=== PATIENT | female | born 1980 | race Caucasian/White ===

== ENCOUNTER 2016-11-19 09:29 | Emergency (ER) | payer MEDICAID ==
[~2016-11-19] VITALS: Wt 63.0 kg
[~2016-11-19 09:29] MED LIST: ALBU8.5H5 IH
[2016-11-19] MEDS ORDERED: DEXAMETHASONE 10 MG/ML 1 ML INJ IM ONE (11:30)
--- NOTE | 2016-11-19 12:05 | RADRPT ---
PROCEDURE: Chest Radiograph. CLINICAL INDICATION: Cough TECHNIQUE: Single frontal chest radiograph. COMPARISON: Chest radiograph 12/11/2008 FINDINGS: The cardiomediastinal silhouette is within normal limits. No infiltrate or effusion is seen. Th e bones are intact. IMPRESSION: 1. Unremarkable chest radiograph. RPTAT: KK .Huber Cooper MD, MD Date Time Electronically viewed and signed by .Huber Cooper MD, on 11/19/2016 12:04 .B/
[2016-11-19] MEDS ORDERED: BENZ100C70 PO (12:08)
[2016-11-19] MEDS ORDERED: ACET325T33 PO (12:08)
[2016-11-19] MEDS ORDERED: PROM25TA14 PO (12:08)
--- NOTE | 2016-11-19 12:12 | ERD ---
ER Documentation Chief Complaint Date/Time DATE: 11/19/16 TIME: 12:09 Chief Complaint COUGH AND SORE THROAT AND RUNNY NOSE FOR 1 WEEK AND R SIDE BACKPAIN HPI This is a 36-year-old female with a history of asthma presenting to the emergency department complaining of cough, sore throat, runny nose for the past week. Patient also states that she has thoracic right back pain that increases with certain movements. Patient denies any shortness of breath or chest pain. Patient states that her last albuterol dose was at 4:00 in the morning. ROS All systems reviewed and are negative except as per history of present illness. Medications Home Meds Active Scripts Acetaminophen* (Tylenol*) 325 Mg Tablet, 2 TAB PO Q6 Y for PAIN AND OR ELEVATED TEMP, #20 TAB Prov:RENETTA ARBOLEDA PA-C 11/19/16 Benzonatate* (Tessalon Perle*) 100 Mg Capsule, 100 MG PO Q8H Y for COUGH, #20 CAP Prov:RENETTA ARBOLEDA PA-C 11/19/16 Promethazine Hcl* (Phenergan*) 25 Mg Tablet, 25 MG PO Q6 Y for COUGH, #10 TAB Prov:RENETTA ARBOLEDA PA-C 11/19/16 Reported Medications Albuterol Sulfate* (Albuterol Sulfate* HFA) 8.5 Gm Hfa.aer.ad, 2 PUFF IH DAILY Y for WHEEZING AND SOB, EA 08/10/14 Allergies Allergies: Coded Allergies: No Known Allergy (Verified , 11/19/16) PMhx/Soc Medical and Surgical Hx: pt denies Medical Hx, pt denies Surgical Hx History of Surgery: No Hx Alcohol Use: No Hx Substance Use: No Hx Tobacco Use: No Physical Exam Vitals Vital Signs Date Time Temp Pulse Resp B/P Pulse Ox O2 Delivery O2 Flow Rate FiO2 11/19/16 09:33 98.1 73 20 133/75 98 Physical Exam GENERAL: well-developed/well-nourished, in no apparent distress, non-toxic appearing HEAD: NC/AT, no swelling noted in frontal or maxillary areas EARS: bilateral tympanic membrane is intact without erythema or effusion NARES: nares patent, rhinorrhea and congested THROAT: oropharynx erythematous without exudates, no tonsil enlargement, post nasal drip EYES: Conjunctiva normal NECK: Supple, no lymphadenopathy PULM: CTA bilaterally, no rales, rhonchi, or wheezing heard CV: Normal S1S2, RRR, good capillary refill GI: Soft, non-distended, normal bowel sounds, non-tender BACK: No midline tenderness, no masses EXT No clubbing, cyanosis, or edema NEURO: Alert and Orientated SKIN: Intact, normal turgor PSYCH: Normal mood and mentation Results 24 hrs Current Medications Medications (Trade) Dose Ordered Sig/Kevin Route PRN Reason Start Time Stop Time Status Last Admin Dose Admin Dexamethasone (Decadron) 10 mg ONCE ONCE IM 11/19/16 11:30 11/19/16 11:31 DC 11/19/16 11:36 Procedures/MDM This is a 36-year-old female with a history of asthma presenting to the emergency department with symptoms most consistent with upper respiratory infection, which is most likely viral. My clinical suspicion is low suspicion for pneumonia, strep pharyngitis, low suspicion for status asthmaticus, pneumonia, inhaled foreign bodyor pulmonary emergencies due to physical examination. Patient's lungs had very mild wheezing, there is no evidence of rales. Patient is breathing well on room air. Decadron 10 mg IM was given to the patient. Chest x-ray was done and did not show any evidence of infiltrates , pneumothorax or pleural effusion or pneumonia Hemodynamically stable. Prescription for Tessalon Perles, promethazine and Tylenol was given, discussed to have a close follow-up with a primary care physician, discussed to return to the ED if not improving as expected or if condition worsens. Patient understood and agreed with this plan. Departure Diagnosis: Primary Impression: URI (upper respiratory infection) Additional Impression: Asthma Condition: Stable Patient Instructions: Preventing Common Respiratory Infections, Uri, Viral, No Abx (Adult) Additional Instructions: Visite a [facility] macie montanez para un EXAMEN.Regrese a estas instalaciones si no se mejora rolf esperbamos o rolf le dijimos. Deans toda la medicina brandan y rolf se le indic. Regrese a estas instalaciones si no se mejora rolf esperbamos o rolf le dijimos. RENETTA ARBOLEDA PA-C Nov 19, 2016 12:11
== END 2016-11-19 12:20 | disposition home or self-care (01) ==
LOC: FTE 09:29
DX: J06.9 Acute upper respiratory infection, unspecified (principal); J45.909 Unspecified asthma, uncomplicated
CPT/HCPCS: 71010; 96372; J1100; Z7502

== ENCOUNTER 2019-04-24 08:35 | Emergency (ER) | payer MEDICAID ==
[~2019-04-24] VITALS: Ht 160 cm; Wt 67.5 kg
[~2019-04-24 08:35] MED LIST changes: +ACET325T33 PO; +BEN25 PO; +BENZ-6 PO; +LORA-441 PO; +NAPR-985 PO; +PROM25TA14 PO
[2019-04-24 08:48] VITALS: BP 137/81; PULSE 74; RESP 20; Ht 160 cm; Wt 67.5 kg
[2019-04-24] MEDS ORDERED: LORAZEPAM 1 MG TAB PO ONE (09:30)
== END 2019-04-24 09:58 | disposition home or self-care (01) ==
LOC: FTE 08:35
DX: F41.9 Anxiety disorder, unspecified (principal); F41.0 Panic disorder [episodic paroxysmal anxiety]
CPT/HCPCS: 81003; 81025; 93005; Z7502; Z7610

== ENCOUNTER 2019-05-18 19:19 | Emergency (ER) | payer MEDICAID ==
[~2019-05-18] VITALS: Ht 157.5 cm; Wt 67.3 kg
[2019-05-18 19:34] VITALS: Ht 157.5 cm; Wt 67.3 kg
[2019-05-18] MEDS ORDERED: SOD CHLORIDE 0.9% 1,000 ML IV STA (22:32)
[2019-05-18] MEDS ORDERED: SOD CHLORIDE 0.9% 100 ML ONE (23:29)
[2019-05-18] MEDS ORDERED: IOHEXOL 300MG/ML 150 ML BTL ONE (23:29)
[2019-05-19] MEDS ORDERED: IBUPROFEN 600 MG TAB PO ONE (01:00)
[2019-05-19 01:14] VITALS: BP 117/82; PULSE 71; RESP 20
== END 2019-05-19 01:16 | disposition home or self-care (01) ==
LOC: FTE 19:19
DX: Z18.9 Retained foreign body fragments, unspecified material (principal); R10.2 Pelvic and perineal pain
CPT/HCPCS: 36415; 74177; 76830; 76856; 80053; 81001; 81025; 85025; 85610; 85730; J7030; Q9967; Z7502; Z7610